=== PATIENT | female | born 1975 | race Caucasian/White ===

== ENCOUNTER 2016-07-21 10:20 | Emergency (ER) | payer BC ==
[~2016-07-21] VITALS: Ht 165.1 cm; Wt 72.7 kg
[~2016-07-21 10:20] MED LIST: Motrin PO; Natalcare Rx,Pramile PO; Percocet 5/325,Endoc PO
[2016-07-21 11:18] LABS: ADD MIUA? YES; BILIRUBIN NEGATIVE; BLOOD SMALL; COLOR YELLOW ((YELLOW)); GLUCOSE (STRIP) NEGATIVE; KETONES NEGATIVE; LEUKOCYTES NEGATIVE; NITRITE NEGATIVE; PROTEIN (STRIP) 100; SPECIFIC GRAVITY 1.016 (1.000-1.030); UROBILINOGEN 0.2 MG/DL (0.2-1.0)
[2016-07-21 11:22] LABS: BACTERIA RARE /HPF; EPITHELIAL CELLS RARE /HPF; MUCUS TRACE /LPF; RED BLOOD CELLS 40-50 /HPF (0-5); WHITE BLOOD CELLS 0-5 /HPF (0-5)
[2016-07-21 11:33] LABS: EOSINOPHIL (%) 0 % (0-5); HEMATOCRIT 37.3 % (36.0-46.0); IMMATURE GRANULOCYTE (%) 0.2 % (0.0-0.7); INSTRUMENT ABS NEUTROPHIL CT 4.7 K/uL; LYMPHOCYTE COUNT 1.1 K/uL (1.0-2.8); MCH 27.1 PG (29.0-34.0); MCHC 32.4 G/DL (30.0-36.0); MCV 83.6 FL (83-99); MONOCYTE (%) 7.1 % (3-12); MONOCYTE COUNT 0.4 K/uL (0-0.8); NEUTROPHIL (%) 74.5 % (45-76); NEUTROPHIL COUNT 4.7 K/uL (1.8-6.4); PLATELET COUNT 212 K/uL (156-360); RBC DIS.WIDTH-CV 14.1 % (11.8-14.6); RBC DIS.WIDTH-SD 43.1 % (39-53); RED BLOOD COUNT 4.46 M/uL (3.80-5.20); WHITE BLOOD COUNT 6.2 K/uL (4.1-10.2)
[2016-07-21 11:56] LABS: CHLORIDE 106 mEq/L (99-109); POTASSIUM 4.6 mEq/L (3.7-5.4); SODIUM 136 mEq/L (136-147)
[2016-07-21 11:57] LABS: GLUCOSE 92 mg/dL (70-99)
[2016-07-21 11:59] LABS: ANION GAP 9 MEQ/L (2-14)
[2016-07-21 12:01] LABS: GFR ESTIMATE (CALCULATED) > 59 mL/min/
[2016-07-21 12:02] LABS: UREA NITROGEN (BUN) 11 mg/dL (9-23)
[2016-07-21 12:10] LABS: QUANTITATIVE HCG < 4.0 MIU/ML
[2016-07-21] MEDS ORDERED: ZOFRAN ODT8 MG PO (13:13)
[2016-07-21] MEDS ORDERED: FLOMAX0.4 MG PO (13:13)
[2016-07-21] MEDS ORDERED: DILAUDID4 MG PO (13:13)
[2016-07-21 14:13] VITALS: BP 129/89
== END 2016-07-21 14:13 | disposition home or self-care (01) ==
LOC: EME 10:20
PROVIDERS: Physician Assistant
DX: N13.2 Hydronephrosis with renal and ureteral calculous obstruction (principal); R11.2 Nausea with vomiting, unspecified; R19.7 Diarrhea, unspecified; Z87.442 Personal history of urinary calculi
CPT/HCPCS: 74176; 80048; 81003; 84702; 85025; 99281; 99284; J1885; J2270; J2405; J3010

== ENCOUNTER 2017-04-19 12:19 | Observation (INO) | payer SELFPAY ==
[~2017-04-19] VITALS: Ht 165.1 cm; Wt 72.7 kg
[~2017-04-19 12:19] MED LIST changes: +DILAUDID4 MG PO; +FLOMAX0.4 MG PO; +ZOFRAN ODT8 MG PO
[2017-04-19 13:22] LABS: BASOPHIL (%) 0.5 % (0-1); EOSINOPHIL (%) 0.1 % (0-5); HEMATOCRIT 40.5 % (36.0-46.0); HEMOGLOBIN 13.5 G/DL (11.9-15.5); IMMATURE GRANULOCYTE (%) 0.2 % (0.0-0.7); LYMPHOCYTE (%) 37.4 % (15-42); MCH 27.4 PG (29.0-34.0); MCHC 33.3 G/DL (30.0-36.0); MCV 82.2 FL (83-99); MONOCYTE (%) 5.3 % (3-12); MONOCYTE COUNT 0.4 K/uL (0-0.8); NEUTROPHIL (%) 56.5 % (45-76); NEUTROPHIL COUNT 4.5 K/uL (1.8-6.4); PLATELET COUNT 285 K/uL (156-360); RBC DIS.WIDTH-CV 13.2 % (11.8-14.6); RBC DIS.WIDTH-SD 39.8 % (39-53); RED BLOOD COUNT 4.93 M/uL (3.80-5.20); WHITE BLOOD COUNT 8.1 K/uL (4.1-10.2)
[2017-04-19 13:27] LABS: CHLORIDE 100 mEq/L (99-109); POTASSIUM 3.3 mEq/L (3.7-5.4); SODIUM 139 mEq/L (136-147)
[2017-04-19 13:28] LABS: GLUCOSE 97 mg/dL (70-99)
[2017-04-19 13:32] LABS: CREATININE 0.8 mg/dL (0.6-1.3); GFR ESTIMATE (CALCULATED) > 59 mL/min/
[2017-04-19 13:33] LABS: UREA NITROGEN (BUN) 13 mg/dL (9-23)
[2017-04-19 14:03] LABS: HEMOGLOBIN A1c (GLYCOHEMOGLOB) 5.3 % (Below 5.7)
[2017-04-19 14:04] LABS: HDL CHOLESTEROL 75 MG/DL (Desirable>=50); LDL CHOLESTEROL 102 mg/dL (Desirable<100); NON-HDL CHOLESTEROL 125 mg/dL (Desirable<160); TOTAL CHOLESTEROL 200 mg/dL (Desirable<200); TRIGLYCERIDES 115 MG/DL (Normal: <150)
[2017-04-19 16:46] LABS: TROP-I INTERPRETATION NEGATIVE; TROPONIN-I < 0.01 ng/mL (0.0-0.30)
[2017-04-19 17:13] LABS: THYROTROPIN (TSH) 1.5 MIU/L (0.4-5.5)
[2017-04-19] MEDS ORDERED: VITAMIN D31000 UNIT PO (17:35)
[2017-04-19] MEDS ORDERED: ADVIL,NUPRIN,M200 MG PO (17:35)
[2017-04-19] MEDS ORDERED: ASCORBIC ACID500 M3 PO (17:35)
[2017-04-19 18:16] LABS: TROP-I INTERPRETATION NEGATIVE; TROPONIN-I < 0.01 ng/mL (0.0-0.30)
[2017-04-19 19:46] VITALS: BP 190/116
[2017-04-19 21:35] VITALS: BP 124/75
[2017-04-20 01:15] VITALS: BP 113/58
[2017-04-20 04:05] LABS: TROP-I INTERPRETATION NEGATIVE; TROPONIN-I < 0.01 ng/mL (0.0-0.30)
[2017-04-20 04:37] VITALS: BP 95/54
[2017-04-20 07:24] VITALS: BP 106/65
[2017-04-20 09:37] LABS: CHLORIDE 105 MEQ/L (99-109); SODIUM 138 MEQ/L (136-147)
[2017-04-20 09:43] LABS: CREATININE 0.9 MG/DL (0.6-1.3); GFR ESTIMATE (CALCULATED) > 59 mL/min/; GLUCOSE 98 mg/dL (70-99); UREA NITROGEN (BUN) 18 mg/dL (9-23)
[2017-04-20 11:20] VITALS: BP 129/79
[2017-04-20] MEDS ORDERED: ASPIR-LOW81 MG PO (14:33)
[2017-04-20] MEDS ORDERED: LABETALOL HCL100 MG PO (14:34)
[2017-04-20] MEDS ORDERED: ALTOPREV20 MG PO (15:31)
[2017-04-20 16:43] VITALS: BP 146/83
== END 2017-04-20 17:15 | disposition home or self-care (01) ==
LOC: EME 12:19 → 5SOUTH 15:10 → EDOF 15:10 → 5SOUTH 15:10 → ENRESERV 15:12 → 5SOUTH 18:02
PROVIDERS: Emergency Medicine; Internal Medicine
DX: I16.0 Hypertensive urgency (principal); I10 Essential (primary) hypertension; G45.9 Transient cerebral ischemic attack, unspecified; I47.2 Ventricular tachycardia; E87.6 Hypokalemia; Z82.49 Family history of ischemic heart disease and other diseases of the circulatory system; Z88.0 Allergy status to penicillin; Z88.1 Allergy status to other antibiotic agents
CPT/HCPCS: 70450; 70496; 70498; 70551; 80048; 80061; 82948; 83036; 83735; 84443; 84484; 85025; 85610; 85651; 85730; 93005; 93306; 99281; 99285; G0378; J1200; J1650; J2270; J2765; J7030

== ENCOUNTER → 2017-04-26 | Outpatient (CLI) | payer SELFPAY ==
[~2017-04-26] MED LIST changes: +ADVIL,NUPRIN,M200 MG PO; +ALTOPREV20 MG PO; +ASCORBIC ACID500 M3 PO; +ASPIR-LOW81 MG PO; +LABETALOL HCL100 MG PO; +VITAMIN D31000 UNIT PO
== END | disposition home or self-care (01) ==
LOC: RAD 08:51
DX: N20.0 Calculus of kidney (principal)
CPT/HCPCS: 76770; 93975